=== PATIENT | male | born 1990 | race Caucasian/White ===

== ENCOUNTER 2017-02-05 20:33 | Emergency (ER) | payer MEDICAID ==
[~2017-02-05] VITALS: Ht 182.9 cm; Wt 161.0 kg
[2017-02-05 20:38] VITALS: BP 159/82
[2017-02-05] MEDS ORDERED: ALBUTEROL SULFATE/IPRATROPIU 3 ML SOL IH ONE (20:50)
--- NOTE | 2017-02-05 20:52 | NUR ---
PT TAKEN TO OF
--- NOTE | 2017-02-05 20:55 | NUR ---
Respiratory Therapist at bedside for respiratory intervention.
--- NOTE | 2017-02-05 21:02 | NUR ---
PT MOVED TO BED 4
--- NOTE | 2017-02-05 21:02 | NUR ---
26/M BIB FAMILY C/O CHEST PAIN x ONE HOUR AGO. PT STATES HE WAS SMOKING AND STARTED TO FEEL SOB. PAIN 7/10 SHARP RADIATING. HX: ASTHMA MEDS: NONE
--- NOTE | 2017-02-05 21:06 | NUR ---
PA STUDENT EVALUATING PATIENT AT BEDSIDE
--- NOTE | 2017-02-05 21:11 | NUR ---
X-Ray at bedside.
[2017-02-05] MEDS ORDERED: predniSONE 20 MG TAB PO ONE (22:10)
[2017-02-05 23:24] VITALS: BP 141/76
--- NOTE | 2017-02-05 23:24 | NUR ---
Patient discharged with v/s stable. Written and verbal after care instructions given and explained. Patient alert, oriented and verbalized understanding of instructions. Ambulatory with steady gait. All questions addressed prior to discharge. ID band removed. Patient advised to follow up with PMD. Rx of ALBUTEROL INHALER AND PREDNISONE 50MG given. Patient educated on indication of medication including possible reaction and side effects. Opportunity to ask questions provided and answered.
== END 2017-02-05 23:24 | disposition home or self-care (01) ==
LOC: MED 20:33
DX: J45.901 Unspecified asthma with (acute) exacerbation (principal); F17.210 Nicotine dependence, cigarettes, uncomplicated
CPT/HCPCS: 71010; 93005; 94640; 99284; J7512; J7620

== ENCOUNTER 2017-02-06 23:51 | Emergency (ER) | payer MEDICAID ==
[~2017-02-06] VITALS: Ht 182.9 cm; Wt 161.9 kg
[2017-02-06 23:57] VITALS: BP 145/88
--- NOTE | 2017-02-07 00:44 | NUR ---
CALLED TO BED NO ANSWER
--- NOTE | 2017-02-07 00:44 | NUR ---
PATIENT LEFT WITHOUT BEING SEEN BY DR. ROSS. NO FURTHER CARE PROVIDED FOR PATIENT.
== END 2017-02-07 00:44 | disposition left against medical advice (07) ==
LOC: MED 23:51
DX: R06.02 Shortness of breath (principal); Z53.21 Procedure and treatment not carried out due to patient leaving prior to being seen by health care provider
CPT/HCPCS: 71010

== ENCOUNTER 2018-07-20 11:44 | Emergency (ER) | payer OTHER ==
[~2018-07-20] VITALS: Ht 182.9 cm; Wt 201.8 kg
[2018-07-20 11:50] VITALS: BP 200/100
--- NOTE | 2018-07-20 12:03 | NUR ---
AAO, AWAKE, COOPERATIVE PT C/O TIGHTNESS AND PAIN LT UPPER ARM FEELING AND NUMBNESS AND TINGLING OF HAND. DENIES DRUG OR ETOH. NO OTHER COMPLAINTS. FELT LIGHT HEADED EARLIER HX---ASTHMA Addendum: 07/20/18 at 1421 by MEDARO PER PT S/S STARTED AROUND 0930 THIS MORNING
--- NOTE | 2018-07-20 12:21 | NUR ---
DR LE EVALUATING AAO PT AT BEDSIDE
--- NOTE | 2018-07-20 12:35 | NUR ---
IV STARTED AT LT AC 20G FOR HEP LOCK PER VERBAL ORDER BY DR LE
[2018-07-20 12:46] LABS: BASOPHILS # (AUTO) 0.1 K/uL (0.00-0.22); BASOPHILS % (AUTO) 0.8 % (0.0-2.0); EOSINOPHILS # (AUTO) 0.4 K/uL (0-0.4); EOSINOPHILS % (AUTO) 4.7 % (0.0-4.0); LYMPHOCYTES # (AUTO) 3.7 K/uL (2.0-11.5); MEAN CORPUSCULAR HEMOGLOBIN 30 pg (27-31); MEAN CORPUSCULAR HGB CONC 33 g/dL (33-37); MEAN CORPUSCULAR VOLUME 89.5 fL (80-94); MONOCYTES # (AUTO) 0.8 K/uL (0.8-1.0); MONOCYTES % (AUTO) 8.9 % (1.7-9.3); NEUTROPHILS # (AUTO) 4.2 K/uL (1.8-7.7); NEUTROPHILS % (AUTO) 45.6 % (42.2-75.2); PLATELET COUNT (AUTO) 236 K/uL (140-450); RED BLOOD CELL COUNT(AUTO) 5.36 MIL/uL (4.20-6.10); RED CELL DISTRIBUTION WIDTH 13.3 % (11.6-13.7); WHITE BLOOD COUNT (AUTO) 9.3 K/uL (4.8-10.8)
--- NOTE | 2018-07-20 12:55 | NUR ---
[facility] CONTACTED BY [facility] TO VERIFY FOR CT SCAN CAN TAKE OVER 400LB PT PER DR LE'S REQUEST
[2018-07-20 12:59] LABS: ANION GAP 9.2 (8-16); CARBON DIOXIDE 29.7 mmol/L (21-32); CREATININE 0.9 mg/dL (0.7-1.3); POTASSIUM 3.9 mmol/L (3.5-5.1)
[2018-07-20 13:09] LABS: CREATINE KINASE MB 0.9 ng/mL (0-3.6)
[2018-07-20 13:10] LABS: TOTAL BILIRUBIN 0.4 mg/dL (0.0-1.0)
--- NOTE | 2018-07-20 13:12 | NUR ---
XRAY AT BEDSIDE FOR INTERVENTION.
--- NOTE | 2018-07-20 14:06 | NUR ---
PT INFORMED FOR TRANSPORT TO [facility]
--- NOTE | 2018-07-20 14:28 | NUR ---
[facility] ARRIVED TO TRANSPORT PT TO [facility] FOR CT
--- NOTE | 2018-07-20 14:42 | NUR ---
PT LEFT WITH [facility] [place] [facility] [place]
--- NOTE | 2018-07-20 14:42 | NUR ---
Patient to be transferred to [place]. Is being transferred due to CT machine unable to take over 400lbs. Receiving facility has accepting physician and available space. ER physician has signed transfer form. Patient or responsible green party has agreed to transfer and signed form. Patient belongings inventoried and will be sent with patient. Copy of nursing notes, lab reports, EKG, Physicians Orders and X-rays to be sent with patient. Report called to ER purchaser at receiving facility by devulcanizer charger Isaac. EMS ambulance service has been called for transfer. Pt transferred via gurney to [facility]. Report given EMS Tierney.
--- NOTE | 2018-07-20 15:55 | NUR ---
AAO IN ACUTE DISTRESS CAME BACK FROM [facility] FOR CT OF THE HEAD VIA EMS PLACE BACK ON BED 12, PLACE ON MONITOR, DR LE MADE AWARE
[2018-07-20 17:20] VITALS: BP 140/79
--- NOTE | 2018-07-20 17:20 | NUR ---
Patient discharged with v/s stable. Written and verbal after care instructions given and explained. Patient alert, oriented and verbalized understanding of instructions. Ambulatory with steady gait. All questions addressed prior to discharge by Dr Paulson. ID band removed. Patient advised to follow up with PMD. Rx of Naprosyn given. Patient educated on indication of medication including possible reaction and side effects by Dr Paulson. Opportunity to ask questions provided and answered by Dr paulson.
== END 2018-07-20 17:20 | disposition home or self-care (01) ==
LOC: MED 11:44
DX: M54.12 Radiculopathy, cervical region (principal); J45.909 Unspecified asthma, uncomplicated; F17.210 Nicotine dependence, cigarettes, uncomplicated
CPT/HCPCS: 36415; 71045; 80053; 82550; 82553; 83880; 84484; 85025; 99284

== ENCOUNTER 2018-09-27 13:48 | Emergency (ER) | payer OTHER ==
[~2018-09-27] VITALS: Ht 185.4 cm; Wt 194.1 kg
[2018-09-27 13:58] VITALS: BP 141/71
--- NOTE | 2018-09-27 14:00 | NUR ---
27 Y/O F BIB GIRLFRIEND WITH C/O LEFT UPPER AB PAIN SINCE LAST NIGHT, PT STATES A BURNING SENSATION, NO PAIN UPON PALPATION. PT DENIES N/V/D; SKIN IS INTACT, PINK/WARM/DRY; AAOX4, PERRL, WITH EVEN AND STEADY GAIT; LUNGS CLEAR BL, BREATHING UNLABORED; HR EVEN AND REGULAR, BL PERIPHERAL PULSES PRESENT; BS ACTIVE X4, NO TENDERNESS TO PALPATION, NO HEPATOSPLENOMEGALLY PALPATED, RESONANT TO PERCUSSION; PT DENIES ANY FEVER, CP, SOB, OR COUGH AT THIS TIME; PT STATES 9/10 PAIN AT THIS TIME; VSS; PATIENT POSITIONED FOR COMFORT; HOB ELEVATED; BEDRAILS UP X2; BED DOWN. PMH: ASTHMA RX: CHANTIX, ALBUTEROL
[2018-09-27 14:37] VITALS: BP 141/71
--- NOTE | 2018-09-27 14:37 | NUR ---
Patient discharged with v/s stable. Written and verbal after care instructions given and explained. Patient alert, oriented and verbalized understanding of instructions. Ambulatory with steady gait. All questions addressed prior to discharge. ID band removed. Patient advised to follow up with PMD. Rx of OMAPROZOLE given. Patient educated on indication of medication including possible reaction and side effects. Opportunity to ask questions provided and answered.
== END 2018-09-27 14:37 | disposition home or self-care (01) ==
LOC: MED 13:48
DX: K21.9 Gastro-esophageal reflux disease without esophagitis (principal); J45.909 Unspecified asthma, uncomplicated; Z98.890 Other specified postprocedural states
CPT/HCPCS: 99283

== ENCOUNTER 2019-01-10 05:42 | Day surgery (SDC) | payer OTHER ==
[~2019-01-10] VITALS: Ht 182.9 cm; Wt 201.8 kg
[2019-01-10 06:29] LABS: BASOPHILS # (AUTO) 0.1 K/uL (0.00-0.22); BASOPHILS % (AUTO) 0.8 % (0.0-2.0); EOSINOPHILS # (AUTO) 0.3 K/uL (0-0.4); EOSINOPHILS % (AUTO) 2.8 % (0.0-4.0); HEMATOCRIT 47.7 % (36-52); HEMOGLOBIN 15.9 g/dL (12.0-18.0); LYMPHOCYTES # (AUTO) 4.2 K/uL (2.0-11.5); LYMPHOCYTES % (AUTO) 37.2 % (20.5-51.1); MEAN CORPUSCULAR HEMOGLOBIN 30 pg (27-31); MEAN CORPUSCULAR HGB CONC 33 g/dL (33-37); MEAN CORPUSCULAR VOLUME 88.6 fL (80-94); MONOCYTES % (AUTO) 8.7 % (1.7-9.3); NEUTROPHILS # (AUTO) 5.6 K/uL (1.8-7.7); NEUTROPHILS % (AUTO) 50.5 % (42.2-75.2); PLATELET COUNT (AUTO) 233 K/uL (140-450); RED BLOOD CELL COUNT(AUTO) 5.39 MIL/uL (4.20-6.10); RED CELL DISTRIBUTION WIDTH 13.4 % (11.6-13.7); WHITE BLOOD COUNT (AUTO) 11.1 K/uL (4.8-10.8)
[2019-01-10 06:45] LABS: PROTHROMBIN TIME 9.6 secs (10.8-13.4)
[2019-01-10] MEDS ORDERED: LIDOCAINE 2% 1000 MG/50 ML VIAL INJ ONE (07:34)
[2019-01-10] MEDS ORDERED: fentaNYL 0.05 MG/ML VIAL ONE (08:12)
[2019-01-10] MEDS ORDERED: fentaNYL 0.05 MG/ML VIAL IVP ONE (08:20)
[2019-01-10] MEDS ORDERED: MORPHINE SULFATE 4 MG/ML SYR IVP PRN (08:30)
[2019-01-10] MEDS ORDERED: MORPHINE SULFATE 4 MG/ML SYR ONE (08:41)
== END 2019-01-10 09:18 | disposition home or self-care (01) ==
LOC: MDS 05:42 → MMU 06:01 → MDS 09:18
PROVIDERS: ATTEND Internal Medicine Gastroenterology
DX: B19.20 Unspecified viral hepatitis C without hepatic coma (principal); K76.0 Fatty (change of) liver, not elsewhere classified; J45.909 Unspecified asthma, uncomplicated; E03.9 Hypothyroidism, unspecified; K21.9 Gastro-esophageal reflux disease without esophagitis; F17.210 Nicotine dependence, cigarettes, uncomplicated; E66.01 Morbid (severe) obesity due to excess calories; Z72.89 Other problems related to lifestyle; Z98.890 Other specified postprocedural states; Z68.44 Body mass index [BMI] 60.0-69.9, adult
CPT/HCPCS: 36415; 47000; 76942; 85025; 85610; 85730; 86704; 88307; 88313; J2001; J2270; J3010; Q0092

== ENCOUNTER 2020-05-29 21:09 | Emergency (ER) | payer OTHER ==
[~2020-05-29] VITALS: Ht 182.9 cm; Wt 202.3 kg
[2020-05-29 21:30] VITALS: BP 148/78
[2020-05-29 22:22] LABS: ANION GAP 12.5 (8-16); CARBON DIOXIDE 26.3 mmol/L (21-32); CREATININE 1.1 mg/dL (0.6-1.3); POTASSIUM 3.8 mmol/L (3.5-5.1)
[2020-05-30 00:10] VITALS: BP 134/71
== END 2020-05-30 | disposition home or self-care (01) ==
LOC: MED 21:09
DX: R07.9 Chest pain, unspecified (principal); F41.9 Anxiety disorder, unspecified; J45.909 Unspecified asthma, uncomplicated
CPT/HCPCS: 36415; 71045; 80048; 99285; Q0092; 99284

== ENCOUNTER 2021-02-28 19:10 | Emergency (ER) | payer OTHER ==
[~2021-02-28] VITALS: Ht 180.3 cm; Wt 219.1 kg
[2021-02-28 19:18] VITALS: BP 124/81
--- NOTE | 2021-02-28 19:30 | NUR ---
30 YO/M BIB self w C/O mid-sternal "pressure" chest pain 02/03 that began last night, has been constant and worsened today. Patient also reports SOB and feeling lightheaded since last night. S1S2 present, cap refil <3sec, radial pulses +2. Lung sounds clear throughout. Patient GCS 15. Denies LOC. Denies N/V. Patient sitting in bed locked in lowest position, HOB elevated. NAD, will continue to monitor. PMH: HTN, Asthma NKA
--- NOTE | 2021-02-28 19:32 | NUR ---
EKG PERFORMED AT BEDSIDE. EKG READS SINUS RHYTHM @ 84
--- NOTE | 2021-02-28 19:51 | NUR ---
Dr. Cortez examining patient.
--- NOTE | 2021-02-28 20:00 | NUR ---
Per CT, unable to perform CT d/t weight limit. ERMD made aware.
[2021-02-28] MEDS ORDERED: MECLIZINE 25 MG TAB PO ONE (20:15)
[2021-02-28] MEDS ORDERED: NACL 0.9% 1,000 ML IV ONE (20:15)
[2021-02-28 20:28] LABS: BASOPHILS # (AUTO) 0.1 K/uL (0.00-0.22); BASOPHILS % (AUTO) 0.9 % (0.0-2.0); EOSINOPHILS # (AUTO) 0.2 K/uL (0-0.4); EOSINOPHILS % (AUTO) 2.7 % (0.0-4.0); HEMOGLOBIN 14.9 g/dL (12.0-18.0); LYMPHOCYTES # (AUTO) 3.1 K/uL (2.0-11.5); LYMPHOCYTES % (AUTO) 36.6 % (20.5-51.1); MEAN CORPUSCULAR HEMOGLOBIN 30 pg (27-31); MEAN CORPUSCULAR HGB CONC 34 g/dL (33-37); MEAN CORPUSCULAR VOLUME 87.6 fL (80-94); MONOCYTES # (AUTO) 0.8 K/uL (0.8-1.0); MONOCYTES % (AUTO) 8.9 % (1.7-9.3); NEUTROPHILS # (AUTO) 4.3 K/uL (1.8-7.7); NEUTROPHILS % (AUTO) 50.9 % (42.2-75.2); PLATELET COUNT (AUTO) 269 K/uL (140-450); RED BLOOD CELL COUNT(AUTO) 5.02 MIL/uL (4.20-6.10); RED CELL DISTRIBUTION WIDTH 13.4 % (11.6-13.7); WHITE BLOOD COUNT (AUTO) 8.5 K/uL (4.8-10.8)
[2021-02-28 20:45] LABS: ALBUMIN 3.6 g/dL (3.4-5.0); ANION GAP 7.9 (8-16); ASPARTATE AMINOTRANSFERASE 41 U/L (15-37); CARBON DIOXIDE 31.3 mmol/L (21-32); CHLORIDE 105 mmol/L (98-107); CREATININE 1.2 mg/dL (0.6-1.3); GFR ARICAN-AMERICAN 93 mL/min (>90); GLUCOSE 120 mg/dL (74-106); POTASSIUM 4.2 mmol/L (3.5-5.1); SODIUM SERUM 140 mmol/L (136-145); TOTAL BILIRUBIN 0.2 mg/dL (0.0-1.0); UREA NITROGEN, BLOOD 13 mg/dL (7-18)
--- NOTE | 2021-02-28 20:54 | NUR ---
EKG PERFORMED AT BEDSIDE. EKG READS SINUS RHYTHM @ 80
[2021-02-28 22:28] LABS: BARBITURATE, URINE NEGATIVE ng/ml (NEG <=200); BENZODIAZEPINE, URINE NEGATIVE ng/mL (NEG <=200); CANNABINOID, URINE POSITIVE ng/mL (NEG <=50); COCAINE, URINE NEGATIVE ng/mL (NEG <=300); OPIATE, URINE NEGATIVE ng/mL (NEG <=2000); PHENCYCLIDINE SCREEN,URINE NEGATIVE ng/mL (NEG <=25)
[2021-02-28] MEDS ORDERED: MECL-370 PO (22:40)
[2021-02-28 22:50] VITALS: BP 122/71
--- NOTE | 2021-02-28 22:50 | NUR ---
Patient discharged with v/s stable. Written and verbal after care instructions given and explained. Patient alert, oriented and verbalized understanding of instructions. Ambulatory with steady gait. All questions addressed prior to discharge. ID band removed. Patient advised to follow up with PMD. Rx of meclizine hcl given. Patient educated on indication of medication including possible reaction and side effects. Opportunity to ask questions provided and answered.
== END 2021-02-28 22:50 | disposition home or self-care (01) ==
LOC: MED 19:10
DX: R42 Dizziness and giddiness (principal); R07.9 Chest pain, unspecified; R06.02 Shortness of breath; J45.909 Unspecified asthma, uncomplicated; I10 Essential (primary) hypertension; F17.210 Nicotine dependence, cigarettes, uncomplicated; F12.90 Cannabis use, unspecified, uncomplicated; Z86.19 Personal history of other infectious and parasitic diseases
CPT/HCPCS: 36415; 80053; 80305; 84484; 85025; 93005; 96360; 99284; G0482; J7030; J8597

== ENCOUNTER 2021-05-28 22:11 | Emergency (ER) | payer OTHER ==
[~2021-05-28] VITALS: Ht 182.9 cm; Wt 217.7 kg
[~2021-05-28 22:11] MED LIST: MECL-370 PO
[2021-05-28 22:21] VITALS: BP 98/63
[2021-05-28] MEDS ORDERED: NACL 0.9% 1,000 ML IV ONE (23:15)
--- NOTE | 2021-05-28 23:25 | NUR ---
PT TAKEN TO BED 6
--- NOTE | 2021-05-28 23:50 | NUR ---
30 YO/M BIBS W C/O SOB X2 DAYS WORSENING TODAY. PATIENT DENIES ANY PAIN OR CHEST PAIN, COUGH, FEVERS, DIZZYNESS, N/V/D. PATIENT USED ALBUTEROL INHALOR AT 1600 WHICH HELPED SLIGHTLY W THE SOB. LUNG SOUNDS CLEAR THROUGHOUT W BREATHING EVEN AND UNLABORED. VSS ON MONITOR. PATIENT LAYING IN BED LOCKED IN OWEST POSITION W X2 SIDERAILS UP FOR PATIENT COMFORT. NAD NOTED, WILL CONTINUE TO MONITOR. PMH:ASTHMA, HTN NKA
[2021-05-28 23:59] LABS: BASOPHILS # (AUTO) 0.1 K/uL (0.00-0.22); BASOPHILS % (AUTO) 0.6 % (0.0-2.0); EOSINOPHILS # (AUTO) 0.2 K/uL (0-0.4); EOSINOPHILS % (AUTO) 1.9 % (0.0-4.0); HEMATOCRIT 46.3 % (36-52); HEMOGLOBIN 15.7 g/dL (12.0-18.0); LYMPHOCYTES # (AUTO) 4.1 K/uL (2.0-11.5); LYMPHOCYTES % (AUTO) 40.8 % (20.5-51.1); MEAN CORPUSCULAR HEMOGLOBIN 30 pg (27-31); MEAN CORPUSCULAR HGB CONC 34 g/dL (33-37); MEAN CORPUSCULAR VOLUME 87.4 fL (80-94); MONOCYTES # (AUTO) 0.9 K/uL (0.8-1.0); MONOCYTES % (AUTO) 8.9 % (1.7-9.3); NEUTROPHILS # (AUTO) 4.8 K/uL (1.8-7.7); NEUTROPHILS % (AUTO) 47.8 % (42.2-75.2); PLATELET COUNT (AUTO) 301 K/uL (140-450); RED CELL DISTRIBUTION WIDTH 13.6 % (11.6-13.7)
--- NOTE | 2021-05-29 00:08 | NUR ---
X-Ray at bedside.
[2021-05-29 00:18] LABS: ALBUMIN 3.5 g/dL (3.4-5.0); ANION GAP 6.9 (8-16); CARBON DIOXIDE 31.7 mmol/L (21-32); CREATININE 1.3 mg/dL (0.6-1.3); POTASSIUM 3.6 mmol/L (3.5-5.1); TOTAL BILIRUBIN 0.3 mg/dL (0.0-1.0)
--- NOTE | 2021-05-29 01:32 | NUR ---
Patient does not wish to proceed with medical care recommended by . Patient given information related to possible complications, up to and including , which could occur as a result of leaving hospital at this time. Patient verbalizes understanding of risks involved leaving against medical advice. Patient has signed AMA form.
[2021-05-29 01:37] VITALS: BP 98/63
== END 2021-05-29 01:32 | disposition left against medical advice (07) ==
LOC: MED 22:11
DX: R06.02 Shortness of breath (principal); R79.1 Abnormal coagulation profile; F17.290 Nicotine dependence, other tobacco product, uncomplicated
CPT/HCPCS: 36415; 71045; 80053; 83880; 84484; 85025; 85379; 93005; 96360; 99285; J7030; Q0092

== ENCOUNTER 2021-12-04 16:03 | Emergency (ER) | payer OTHER ==
[~2021-12-04] VITALS: Ht 182.9 cm; Wt 216.8 kg
[2021-12-04 16:04] VITALS: BP 146/77
[2021-12-04] MEDS ORDERED: KETOROLAC 60 MG/2 ML VIAL IM ONE (16:50)
[2021-12-04] MEDS ORDERED: NAPR-54 PO (16:51)
[2021-12-04 17:32] VITALS: BP 146/77
== END 2021-12-04 17:30 | disposition home or self-care (01) ==
LOC: MED 16:03
DX: M25.511 Pain in right shoulder (principal); J45.909 Unspecified asthma, uncomplicated; I10 Essential (primary) hypertension; F17.200 Nicotine dependence, unspecified, uncomplicated; Z79.899 Other long term (current) drug therapy
CPT/HCPCS: 73030; 96372; 99283; J1885

== ENCOUNTER 2022-03-18 20:47 | Emergency (ER) | payer OTHER ==
[~2022-03-18] VITALS: Ht 182.9 cm; Wt 217.3 kg
[~2022-03-18 20:47] MED LIST changes: +NAPR-54 PO
[2022-03-18 20:57] VITALS: BP 152/82
--- NOTE | 2022-03-18 21:05 | NUR ---
Patient ambulated to bed 3.
[2022-03-18] MEDS ORDERED: NACL 0.9% 1,000 ML IV ONE (21:15)
[2022-03-18 21:41] LABS: BASOPHILS # (AUTO) 0.1 K/uL (0.00-0.22); BASOPHILS % (AUTO) 0.7 % (0.0-2.0); EOSINOPHILS # (AUTO) 0.1 K/uL (0-0.4); EOSINOPHILS % (AUTO) 0.7 % (0.0-4.0); HEMATOCRIT 45.6 % (36-52); HEMOGLOBIN 15.3 g/dL (12.0-18.0); LYMPHOCYTES # (AUTO) 2.6 K/uL (2.0-11.5); LYMPHOCYTES % (AUTO) 33.6 % (20.5-51.1); MEAN CORPUSCULAR HEMOGLOBIN 29 pg (27-31); MEAN CORPUSCULAR HGB CONC 34 g/dL (33-37); MEAN CORPUSCULAR VOLUME 86.1 fL (80-94); MONOCYTES # (AUTO) 0.7 K/uL (0.8-1.0); NEUTROPHILS # (AUTO) 4.4 K/uL (1.8-7.7); PLATELET COUNT (AUTO) 284 K/uL (140-450); RED BLOOD CELL COUNT(AUTO) 5.29 MIL/uL (4.20-6.10); RED CELL DISTRIBUTION WIDTH 13.5 % (11.6-13.7); WHITE BLOOD COUNT (AUTO) 7.8 K/uL (4.8-10.8)
[2022-03-18 22:32] LABS: ALBUMIN 3.4 g/dL (3.4-5.0); ANION GAP 12.7 (8-16); ASPARTATE AMINOTRANSFERASE 37 U/L (15-37); CARBON DIOXIDE 27.9 mmol/L (21-32); CHLORIDE 101 mmol/L (98-107); CREATININE 1.2 mg/dL (0.6-1.3); GFR ARICAN-AMERICAN 92 mL/min (>90); GLUCOSE 167 mg/dL (74-106); LIPASE 110 U/L (73-393); POTASSIUM 3.6 mmol/L (3.5-5.1); SODIUM SERUM 138 mmol/L (136-145); TOTAL BILIRUBIN 0.4 mg/dL (0.0-1.0); UREA NITROGEN, BLOOD 14 mg/dL (7-18)
[2022-03-18 22:58] LABS: ACETONE, SERUM NEGATIVE (NEGATIVE)
[2022-03-18 23:37] LABS: APPEARANCE,URINE CLEAR (CLEAR); BILIRUBIN,URINE NEGATIVE (NEGATIVE); BLOOD, URINE NEGATIVE (NEGATIVE); COLOR,URINE YELLOW (YELLOW); LEUKOCYTE ESTERASE ,URINE NEGATIVE (NEGATIVE); NITRITE, URINE NEGATIVE (NEGATIVE); UGLUCOSE NEGATIVE (NEGATIVE)
[2022-03-19 00:07] VITALS: BP 131/73
--- NOTE | 2022-03-19 00:08 | NUR ---
Patient discharged with v/s stable. Written and verbal after care instructions given and explained. Patient verbalized understanding. Ambulatory with steady gait. All questions addressed prior to discharge. Advised to follow up with PMD.
== END 2022-03-18 23:55 | disposition home or self-care (01) ==
LOC: MED 20:47
DX: R55 Syncope and collapse (principal); I10 Essential (primary) hypertension; J45.909 Unspecified asthma, uncomplicated; F17.200 Nicotine dependence, unspecified, uncomplicated; F12.90 Cannabis use, unspecified, uncomplicated; Z79.899 Other long term (current) drug therapy
CPT/HCPCS: 36415; 71045; 80053; 81003; 82009; 82550; 82803; 82948; 83605; 83690; 84484; 85025; 87086; 93005; 96360; 99285; J7030; Q0092

== ENCOUNTER 2022-07-08 19:53 | Emergency (ER) | payer OTHER ==
[~2022-07-08] VITALS: Ht 182.9 cm; Wt 205.5 kg
[2022-07-08 20:24] VITALS: BP 111/93
[2022-07-08 20:36] VITALS: BP 111/93
--- NOTE | 2022-07-08 20:36 | NUR ---
HAD + COVID TEST ON SUNDAY. TOOK ESQUANDA TEA FOR COVID, HAD HIVES, ITCHINESS, THROAT CLOSING UP FROM POSSIBLE TAKING [employer]DA TEA. TOOK BENADRYL IN THE MORNING HX: ASTHMA NKA
--- NOTE | 2022-07-08 22:39 | NUR ---
CALL TO BED , NO RESPONSE PATIENT LEFT WITHOUT BEING SEEN BY DR. CHRIS. NO FURTHER CARE PROVIDED FOR PATIENT.
--- NOTE | 2022-07-08 22:45 | NUR ---
CALLED FOR THE SECOND TIME ,NO RESPONSE
--- NOTE | 2022-07-08 22:50 | NUR ---
CALLED FOR THE THIRD TIME , NO RESPONSE
== END 2022-07-08 22:45 | disposition left against medical advice (07) ==
LOC: MED 19:53
DX: L50.9 Urticaria, unspecified (principal); Z53.21 Procedure and treatment not carried out due to patient leaving prior to being seen by health care provider

== ENCOUNTER 2022-07-09 10:19 | Emergency (ER) | payer OTHER ==
[~2022-07-09] VITALS: Ht 182.9 cm; Wt 205.5 kg
[2022-07-09 10:42] VITALS: BP 158/91
--- NOTE | 2022-07-09 10:50 | NUR ---
TENT 1.
--- NOTE | 2022-07-09 11:03 | NUR ---
BIB FAMILY C/O ITCHY RASH ON ABDOMINAL & BACK S/P DRINKING HERBAL TEA X 2 DAYS. COVID TESTED POSITIVE 6 DAYS AGO & TESTED LAST NIGHT STILL POSITIVE. PMH: ASTHMA
--- NOTE | 2022-07-09 12:23 | NUR ---
pt called by pa at this time, no answer, lwbs
== END 2022-07-09 12:23 | disposition left against medical advice (07) ==
LOC: MED 10:19
DX: R21 Rash and other nonspecific skin eruption (principal); Z53.21 Procedure and treatment not carried out due to patient leaving prior to being seen by health care provider

== ENCOUNTER 2022-10-13 21:01 | Emergency (ER) | payer OTHER ==
[~2022-10-13] VITALS: Ht 182.9 cm; Wt 207.3 kg
--- NOTE | 2022-10-13 23:43 | NUR ---
CALLED MULTIPLE TIMES IN LOBBY AND OUTSIDE, NO ANSWER. LWBS
== END 2022-10-13 23:43 | disposition left against medical advice (07) ==
LOC: MED 21:01
DX: R07.9 Chest pain, unspecified (principal); Z53.21 Procedure and treatment not carried out due to patient leaving prior to being seen by health care provider
CPT/HCPCS: 93005; 99283

== ENCOUNTER 2023-07-01 23:40 | Emergency (ER) | payer OTHER ==
[~2023-07-01] VITALS: Ht 182.9 cm; Wt 217.3 kg
[2023-07-01 23:53] VITALS: BP 135/82; PULSE 74; RESP 16; TEMP 97.8; O2SAT 98
[2023-07-02] MEDS ORDERED: KETOROLAC 30 MG/ML VIAL IVP ONE (00:50)
[2023-07-02 01:31] LABS: BASOPHILS % (AUTO) 0.5 % (0.0-2.0); EOSINOPHILS # (AUTO) 0.2 K/uL (0-0.4); EOSINOPHILS % (AUTO) 1.8 % (0.0-4.0); HEMATOCRIT 42.3 % (36-52); HEMOGLOBIN 14.2 g/dL (12.0-18.0); LYMPHOCYTES % (AUTO) 43.5 % (20.5-51.1); MEAN CORPUSCULAR HEMOGLOBIN 29 pg (27-31); MEAN CORPUSCULAR HGB CONC 34 g/dL (33-37); MEAN CORPUSCULAR VOLUME 85.9 fL (80-94); MONOCYTES # (AUTO) 0.7 K/uL (0.8-1.0); MONOCYTES % (AUTO) 7.9 % (1.7-9.3); NEUTROPHILS # (AUTO) 4.3 K/uL (1.8-7.7); NEUTROPHILS % (AUTO) 46.3 % (42.2-75.2); PLATELET COUNT (AUTO) 268 K/uL (140-450); RED BLOOD CELL COUNT(AUTO) 4.92 MIL/uL (4.20-6.10); RED CELL DISTRIBUTION WIDTH 13.5 % (11.6-13.7); WHITE BLOOD COUNT (AUTO) 9.2 K/uL (4.8-10.8)
[2023-07-02] MEDS ORDERED: predniSONE 20 MG TAB PO ONE (01:45)
[2023-07-02 01:49] LABS: INR 0.96 (0.8-1.2); PARTIAL THROMBOPLASTIN TIME 25.6 secs (22-35.6); PROTHROMBIN TIME 10.1 secs (10.8-13.4)
[2023-07-02 02:05] LABS: ALBUMIN 3.1 g/dL (3.4-5.0); ANION GAP 9.5 (8-16); CALCIUM 8.7 mg/dL (8.5-10.1); CARBON DIOXIDE 32.5 mmol/L (21-32); CREATININE 1.2 mg/dL (0.6-1.3); TOTAL BILIRUBIN 0.3 mg/dL (0.0-1.0); TOTAL PROTEIN, SERUM 7.1 g/dL (6.4-8.2)
[2023-07-02] MEDS ORDERED: PRED20TA5 PO (02:35)
[2023-07-02] MEDS ORDERED: AZIT250T4 PO (02:35)
[2023-07-02 02:50] VITALS: BP 135/82; PULSE 70; RESP 16; TEMP 97.8; O2SAT 98
== END 2023-07-02 02:50 | disposition home or self-care (01) ==
LOC: MED 23:40
DX: J45.901 Unspecified asthma with (acute) exacerbation (principal); R07.9 Chest pain, unspecified; I10 Essential (primary) hypertension; Z79.899 Other long term (current) drug therapy
CPT/HCPCS: 36415; 71045; 80053; 83880; 84484; 85025; 85379; 85610; 85730; 93005; 99285

== ENCOUNTER 2023-07-25 19:10 | Emergency (ER) | payer OTHER ==
[~2023-07-25] VITALS: Ht 188 cm; Wt 213.6 kg
[~2023-07-25 19:10] MED LIST changes: +AZIT250T4 PO; +PRED20TA5 PO
[2023-07-25 19:50] VITALS: BP 114/78; PULSE 105; RESP 19; TEMP 97.6; O2SAT 98
[2023-07-25 20:41] VITALS: TEMP 97.8
[2023-07-25 21:33] LABS: BASOPHILS # (AUTO) 0.1 K/uL (0.00-0.22); BASOPHILS % (AUTO) 0.6 % (0.0-2.0); EOSINOPHILS # (AUTO) 0.1 K/uL (0-0.4); EOSINOPHILS % (AUTO) 1.3 % (0.0-4.0); HEMATOCRIT 47.5 % (36-52); HEMOGLOBIN 15.6 g/dL (12.0-18.0); LYMPHOCYTES # (AUTO) 2.9 K/uL (2.0-11.5); LYMPHOCYTES % (AUTO) 34.6 % (20.5-51.1); MEAN CORPUSCULAR HEMOGLOBIN 28 pg (27-31); MEAN CORPUSCULAR HGB CONC 33 g/dL (33-37); MEAN CORPUSCULAR VOLUME 85.6 fL (80-94); MONOCYTES # (AUTO) 0.6 K/uL (0.8-1.0); MONOCYTES % (AUTO) 7.5 % (1.7-9.3); NEUTROPHILS # (AUTO) 4.7 K/uL (1.8-7.7); PLATELET COUNT (AUTO) 294 K/uL (140-450); RED BLOOD CELL COUNT(AUTO) 5.55 MIL/uL (4.20-6.10); RED CELL DISTRIBUTION WIDTH 13.6 % (11.6-13.7); WHITE BLOOD COUNT (AUTO) 8.5 K/uL (4.8-10.8)
[2023-07-25 21:55] LABS: ALBUMIN 3.5 g/dL (3.4-5.0); ANION GAP 10.8 (8-16); CALCIUM 8.8 mg/dL (8.5-10.1); CARBON DIOXIDE 31.2 mmol/L (21-32); CREATININE 1.4 mg/dL (0.6-1.3); TOTAL BILIRUBIN 0.4 mg/dL (0.0-1.0); TOTAL PROTEIN, SERUM 7.8 g/dL (6.4-8.2)
[2023-07-25] MEDS ORDERED: LIDOCAINE 4% 1 EA PATCH TP STA (22:29)
[2023-07-25] MEDS ORDERED: KETOROLAC 30 MG/ML VIAL IM ONE (22:30)
[2023-07-25] MEDS ORDERED: LID5T TP (23:14)
[2023-07-25] MEDS ORDERED: DICL20GE TP (23:14)
[2023-07-25] MEDS ORDERED: ACET-2619 PO (23:14)
[2023-07-25] MEDS ORDERED: CYCL-711 PO (23:14)
[2023-07-25 23:35] VITALS: BP 108/83; PULSE 91; RESP 14; O2SAT 97
== END 2023-07-25 23:29 | disposition home or self-care (01) ==
LOC: MED 19:10
DX: R07.89 Other chest pain (principal); I10 Essential (primary) hypertension; E11.9 Type 2 diabetes mellitus without complications; E66.01 Morbid (severe) obesity due to excess calories; N17.9 Acute kidney failure, unspecified; E78.00 Pure hypercholesterolemia, unspecified; J45.909 Unspecified asthma, uncomplicated; Z79.899 Other long term (current) drug therapy; Z79.1 Long term (current) use of non-steroidal anti-inflammatories (NSAID); Z79.2 Long term (current) use of antibiotics
CPT/HCPCS: 36415; 71045; 80053; 83880; 84484; 85025; 93005; 96372; 99285; J1885; Q0092

== ENCOUNTER 2023-08-22 18:15 | Emergency (ER) | payer OTHER ==
[~2023-08-22] VITALS: Ht 182.9 cm; Wt 136.1 kg
[~2023-08-22 18:15] MED LIST changes: +ACET-2619 PO; +CYCL-711 PO; +DICL20GE TP; +LID5T TP
[2023-08-22 18:40] VITALS: BP 156/89; PULSE 77; RESP 20; TEMP 97; O2SAT 98
[2023-08-22] MEDS ORDERED: NACL 0.9% 1,000 ML IV SCH (19:45)
== END 2023-08-22 20:28 | disposition left against medical advice (07) ==
LOC: MED 18:15
DX: R11.0 Nausea (principal); R10.9 Unspecified abdominal pain; Z53.21 Procedure and treatment not carried out due to patient leaving prior to being seen by health care provider
CPT/HCPCS: 99281

== ENCOUNTER 2023-11-21 23:06 | Emergency (ER) | payer OTHER ==
[~2023-11-21] VITALS: Ht 182.9 cm; Wt 205.0 kg
[2023-11-21 23:22] VITALS: BP 104/73; PULSE 82; RESP 18; TEMP 98.3; O2SAT 98
[2023-11-22] MEDS ORDERED: IBUP-2213 PO (01:15)
[2023-11-22 01:42] VITALS: BP 105/61; PULSE 82; RESP 18; TEMP 98.3; O2SAT 98
== END 2023-11-22 01:42 | disposition home or self-care (01) ==
LOC: MED 23:06
DX: R07.89 Other chest pain (principal); E11.9 Type 2 diabetes mellitus without complications; I10 Essential (primary) hypertension; J45.909 Unspecified asthma, uncomplicated; E78.5 Hyperlipidemia, unspecified; F17.200 Nicotine dependence, unspecified, uncomplicated; Z79.899 Other long term (current) drug therapy
CPT/HCPCS: 93005; 99283